=== PATIENT | male | born 1995 | race Caucasian/White ===

== ENCOUNTER 2017-07-13 03:15 | Emergency (ER) | payer OTHER ==
[2017-07-13 03:47] LABS: BASOPHIL 0.4 % (0-2); EOSINOPHIL 0.4 % (0-5); HCT 41.8 % (42.0-52.0); HGB 14.2 g/dl (13.2-18.0); LYMPHOCYTE 15.2 % (15-48); MCH 28.2 pg (25.0-31.0); MCV 82.9 fL (78.0-100.0); MONOCYTE 4.7 % (0-12); MPV 10.9 fL (6.0-9.5); NEUTROPHIL 79.3 % (41-80); PLT 223 K/uL (150-400); RBC 5.04 M/uL (4.70-6.00); RDW 12.8 % (11.5-14.0); WBC 11.4 K/uL (4.0-10.5)
[2017-07-13 04:03] LABS: ALBUMIN 4.6 g/dL (3.5-5.0); BILIRUBIN - TOTAL 0.2 mg/dL (0.1-1.0); CREATININE 0.9 mg/dL (0.7-1.2); GLOBULIN (CALCULATION) 3.4 g/dL (2.2-4.2); POTASSIUM 3.4 mmol/L (3.5-5.1)
[2017-07-13 09:54] LABS: CREATININE 0.8 mg/dL (0.7-1.2)
== END 2017-07-13 10:19 | disposition home or self-care (01) ==
LOC: FER 03:15
PROVIDERS: Emergency Medicine; Emergency Medicine Emergency Medical Services
DX: R19.7 Diarrhea, unspecified (principal); R11.2 Nausea with vomiting, unspecified; F17.200 Nicotine dependence, unspecified, uncomplicated
CPT/HCPCS: 36415; 80048; 80053; 82150; 83605; 83690; 85025; 96372; J0500; J2060; J2405